=== PATIENT | male | born 1985 | race African-American/Black ===

== ENCOUNTER 2017-01-25 19:03 | Inpatient (IN) | payer BC, OTHER ==
[~2017-01-25] VITALS: Ht 188 cm; Wt 111.1 kg
--- NOTE | 2017-01-25 23:46 | NUR ---
INTAKE ADMISSION Pt is a 31 y/o male being admitted into [facility] for Opiate and Benzodiazepine withdrawal. At this time pt is a/o x 4 with no. Pt's vitals signs are as follow: 138/75 HR: 79 O2 SAT: 96% T: 98.6 R: 18 Pain: 4/10 COW: 10 and CIWA: 6 . Pt was made aware of policies and procedures including; routine vital sign assessments. Pt was given an opportunity to ask questions and voice concerns. Pt is now ready to proceed to the 3rd floor.
[2017-01-26] VITALS: BP 138/75
[2017-01-26 00:16] LABS: *AMPHETAMINE, URINE NEGATIVE (NEGATIVE); *BARBITURATE, URINE NEGATIVE (NEGATIVE); *CANNABINOID, URINE NEGATIVE (NEGATIVE); *COCCAINE, URINE NEGATIVE (NEGATIVE); *OPIATE, URINE POSITIVE (NEGATIVE); *PHENCYCLIDINE SCREEN,URINE NEGATIVE (NEGATIVE)
[2017-01-26] MEDS ORDERED: MAGNESIUM HYDROXIDE 30 ML LIQUID UDC PO PRN (00:45)
[2017-01-26] MEDS ORDERED: ACETAMINOPHEN 325 MG TABLET PO PRN (00:45)
[2017-01-26] MEDS ORDERED: IBUPROFEN 400 MG TABLET PO PRN (00:45)
[2017-01-26] MEDS ORDERED: MIRALAX 17 GM POWD.PACK PO PRN (00:45)
[2017-01-26] MEDS ORDERED: diphenhydrAMINE 50 MG CAPSULE PO PRN (00:45)
[2017-01-26] MEDS ORDERED: MAG HYDROX/AL HYDROX/SIMETH 30 ML LIQUID UDC PO PRN (00:45)
[2017-01-26] MEDS ORDERED: LORAZEPAM 2 MG/1 ML VIAL IM PRN (00:45)
[2017-01-26] MEDS ORDERED: LOPERAMIDE HCL 2 MG CAPSULE PO PRN ×2 (00:45)
[2017-01-26] MEDS ORDERED: METHOCARBAMOL 750 MG TABLET PO PRN (00:45)
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
[2017-01-26 01:16] LABS: BASOPHILS # (AUTO) 0.1 K/uL (0.0-8.0); BASOPHILS % (AUTO) 0.6 % (0.0-2.0); EOSINOPHILS # (AUTO) 0.3 K/uL (0.0-0.7); EOSINOPHILS % (AUTO) 2.5 % (0.0-7.0); HEMATOCRIT 43.7 % (40-50); HEMOGLOBIN 14.2 G/DL (14.0-18.0); LYMPHOCYTES # (AUTO) 4.8 K/UL (0.8-4.8); LYMPHOCYTES % (AUTO) 35.2 % (20.5-51.5); MEAN CORPUSCULAR HEMOGLOBIN 27.4 UUG (27.0-31.0); MEAN CORPUSCULAR HGB CONC 32 g/dL (32.0-37.0); MEAN CORPUSCULAR VOLUME 84.4 FL (82.0-92.0); MONOCYTES # (AUTO) 0.6 K/UL (0.1-1.30); MONOCYTES % (AUTO) 4.3 % (0.0-11.0); NEUTROPHILS # (AUTO) 7.8 K/UL (1.8-8.9); NEUTROPHILS % (AUTO) 57.4 % (38.5-71.5); PLATELET COUNT (AUTO) 278 K/UL (150-450); RED BLOOD CELL COUNT(AUTO) 5.18 MIL/UL (4.7-6.1); WHITE BLOOD COUNT (AUTO) 13.6 K/UL (4.0-11.2)
[2017-01-26 01:27] LABS: ETHANOL < 3 MG/DL (0-0)
[2017-01-26] MEDS: ONDANSETRON ODT 4 MG TAB.RAPDIS SL PRN ×2 (01:30→07:55)
[2017-01-26] MEDS: DICYCLOMINE HCL 20 MG TABLET PO PRN ×3 (01:30→15:34)
[2017-01-26 01:32] LABS: ALANINE AMINOTRANSFERASE 35 U/L (16-63); ALKALINE PHOSPHATASE 59 U/L (50-136); ASPARTATE AMINOTRANSFERASE 27 U/L (15-37); BILIRUBIN,TOTAL 0.2 mg/dL (0.2-1.0); CARBON DIOXIDE 30 mmol/L (21-32); CHLORIDE 104 mmol/L (98-107); CREATININE 0.9 mg/dL (0.6-1.3); GLUCOSE 105 mg/dL (74-106); MAGNESIUM 1.8 mg/dL (1.8-2.4); POTASSIUM 3.9 mmol/L (3.5-5.1); TOTAL PROTEIN, SERUM 7.6 g/dL (6.4-8.2); UREA NITROGEN, BLOOD 18 mg/dL (7-18)
[2017-01-26] MEDS: BUPRENORPHINE HCL 2 MG TAB.SUBL SL PRN ×2 (01:32→09:32)
--- NOTE | 2017-01-26 01:32 | NUR ---
SUBUTEX, BENTYL, AND ZOFRAN PRN ADMINISTRATION Pt stated " I'm really not feeling well. I'm sweating. My body is aching so bad and I'm nauseous. I just can't relax. Can I please have something?" COW score at this time is 12. Subutex 4 mg PO PRN, Zofran 4 mg ODT PRN, and Bentyl 20 mg PO PRN was given. All safety measures in place. Will monitor for effectiveness.
[2017-01-26] MEDS ORDERED: BUPRENORPHINE HCL 2 MG TAB.SUBL SL ONE (01:36)
[2017-01-26] MEDS ORDERED: ONDANSETRON ODT 4 MG TAB.RAPDIS ONE (01:37)
[2017-01-26] MEDS ORDERED: DICYCLOMINE HCL 20 MG TABLET ONE (01:37)
--- NOTE | 2017-01-26 02:32 | NUR ---
SUBUTEX, ZOFRAN, AND BENTYL PRN REASSESSMENT Pt stated " I feel way more relaxed now. I'm not nauseous anymore and I was able to keep my food down." COW is now 4. PRNS effective. All safety measures in place. Will continue to monitor.
[2017-01-26 04:00] VITALS: BP 111/53
[2017-01-26] MEDS ORDERED: DIAZ5TAB PO (06:52)
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
--- NOTE | 2017-01-26 07:15 | NUR ---
Start of Shift Endorsement received from nightshift nurse. PT is a 31 y/o male admitted for oxycodone and Valium. Pt has been placed on a 5 day Ativan and 5 day Subutex taper. Pt is mildly withdrawing at this time AEB COWS 3, CIWA 3 at 0400. Pt received PRN Zofran, Bentyl and Subutex. PT reports sleeping 5 hours. VS WNL. Full Code. PT is alert and oriented x4. Pt is in STABLE condition at this time. Remains compliant with medication and diet regimen. All needs have been met, All safety measures in place per hospital policy. Bed in lowest position, side rails up x2, call-light within reach. Will continue to monitor
[2017-01-26] MEDS: CLONIDINE HCL 0.1 MG TABLET PO PRN (07:55)
[2017-01-26] MEDS: HYDROXYZINE PAMOATE 25 MG CAPSULE PO PRN (07:55)
[2017-01-26 08:00] VITALS: BP 122/65
[2017-01-26] MEDS: MULTIVITAMINS,THERAPEUTIC TABLET PO SCH (09:17)
[2017-01-26] MEDS ORDERED: DIAZEPAM 10 MG TABLET PO PRN ×2 (11:30)
[2017-01-26] MEDS ORDERED: DIAZEPAM 5 MG TABLET PO PRN (11:30)
[2017-01-26] MEDS: DIAZEPAM 10 MG TABLET PO SCH ×3 (11:45→20:24)
[2017-01-26 12:00] VITALS: BP 130/69
[2017-01-26] MEDS: BUPRENORPHINE HCL 2 MG TAB.SUBL SL SCH ×3 (13:00→20:25)
[2017-01-26] MEDS: GABAPENTIN 300 MG CAPSULE PO SCH ×3 (15:00→20:24)
[2017-01-26 16:00] VITALS: BP 120/74
--- NOTE | 2017-01-26 18:59 | NUR ---
End of Shift Endorsement given to nightshift nurse. PT is a 31 y/o male admitted for oxycodone and Valium. Pt has been placed on a 5 day Valium and 5 day Subutex taper. Pt is moderately withdrawing at this time AEB COWS 4, CIWA 4 at 1900. Pt received PRN Zofran, Bentyl x2, Robaxin, Vistaril, Zofran and Subutex for COWS 12. All medications were effective upon re-assessment. Pt participated in groups and activities. Educated pt on diet and medication regimen. Educated pt on S/E of taper medications. Encouraged pt to drink lots of fluids. Intake: 1840m, Void x4, BM x1 Pt reports readiness for sobriety. PT presents with positive attitude. VS WNL. Full Code. PT is alert and oriented x4. Pt is in STABLE condition at this time. Remains compliant with medication and diet regimen. All needs have been met, All safety measures in place per hospital policy. Bed in lowest position, side rails up x2, call-light within reach. Will continue to monitor
[2017-01-26 20:00] VITALS: BP 126/83
--- NOTE | 2017-01-26 20:00 | NUR ---
Start of Shift Pt is a 31 year old male admitted for Opiate/Benzo dependence, placed on 5 day Valium and 5 day Subutex taper. PMH: Anxiety, depression, insomnia, back surgery 2016, and seizures (unspecified) 13 years ago. NKA, regular diet, fall/seizure precautions and full code. Upon assessment, pt reports anxiety, body aches, abdominal cramping, skin clammy, respirations even/unlabored, denies SOB/chest pain, denies n/v/d, denies SI/HI, bowel sounds active x4, abdomen soft. pt scheduled for discharge tomorrow. Safety measures in place, call light within reach, side rails up x2, bed locked and in low position. Will continue to monitor.
[2017-01-26] MEDS: QUETIAPINE FUMARATE 100 MG TABLET PO PRN (21:34)
--- NOTE | 2017-01-26 21:34 | NUR ---
PRN Administration 2133 Pt requested aid to help him sleep. Seroquel 100mg PRN administered as ordered. Safety measures in place, will continue to monitor.
--- NOTE | 2017-01-26 22:34 | NUR ---
PRN Reassessment Upon reassessment, pt is noted in bed with eyes closed, resting with respirations even/unlabored. Safety measures in place. Will continue to monitor.
[2017-01-27] VITALS: BP 131/84
--- NOTE | 2017-01-27 | NUR ---
Vital Signs BP 131/84, pulse 90, resp 18, SpO2 99%, temp 97.6, no pain 0/10 CIWA/COWS deferred to assess while pt is awake as ordered. Safety measures in place, will continue to monitor.
[2017-01-27 04:00] VITALS: BP 110/62
--- NOTE | 2017-01-27 04:00 | NUR ---
Vital Signs BP 110/62, pulse 69, resp 16, SpO2 98%, temp 98.1, no pain 0/10 CIWA/COWS deferred to assess while pt is awake as ordered. Safety measures in place, will continue to monitor.
[2017-01-27] MEDS: DICYCLOMINE HCL 20 MG TABLET PO PRN (05:46)
--- NOTE | 2017-01-27 05:46 | NUR ---
PRN Administration Pt reported abdominal cramping, requested relief. Bentyl 20mg PRN administered. Safety measures in place. Will continue to monitor.
--- NOTE | 2017-01-27 06:46 | NUR ---
PRN Reassessment Pt abdominal cramps are subsiding. Safety measures in place. Will continue to monitor.
--- NOTE | 2017-01-27 07:00 | NUR ---
End of Shift Pt is a 31 year old male admitted for Opiate/Benzo dependence, placed on 5 day Valium and 5 day Subutex taper. PMH: Anxiety, depression, insomnia, back surgery 2016, and seizures (unspecified) 13 years ago. NKA, regular diet, fall/seizure precautions and full code. During shift, pt reported anxiety, body aches, abdominal cramping, skin clammy - scheduled taper mediations administered, COWS 4 and CIWA 5. Seroquel 100mg PRN administered for sleep. Bentyl 20mg PRN administered for abdominal cramping. Pt slept for 5 hours, intake of 842 ML PO, voids x2 and stool x 0. Safety measures in place, call light within reach, side rails up x2, bed locked and in low position. Endorsed to day shift nurse.
--- NOTE | 2017-01-27 07:05 | NUR ---
Start of Shift Endorsement received from nightshift nurse. PT is a 31 y/o male admitted for oxycodone and Valium. Pt has been placed on a 5 day Ativan and 5 day Subutex taper. Pt is mildly withdrawing at this time AEB COWS 4, CIWA 4 at 0400. Pt received PRN Bentyl and Seroquel. PT reports sleeping 5 hours. PT reports feeling rested. VS WNL. Full Code. PT is alert and oriented x4. Pt is in STABLE condition at this time. Remains compliant with medication and diet regimen. All needs have been met, All safety measures in place per hospital policy. Bed in lowest position, side rails up x2, call-light within reach. Will continue to monitor
[2017-01-27 08:00] VITALS: BP 115/70
[2017-01-27] MEDS: DIAZEPAM 10 MG TABLET PO SCH ×3 (08:14→20:36)
[2017-01-27] MEDS: BUPRENORPHINE HCL 2 MG TAB.SUBL SL SCH ×3 (08:14→20:37)
[2017-01-27] MEDS: GABAPENTIN 300 MG CAPSULE PO SCH ×3 (08:14→20:35)
[2017-01-27] MEDS: MULTIVITAMINS,THERAPEUTIC TABLET PO SCH (08:14)
[2017-01-27] MEDS ORDERED: TUBERCULIN,PURIF.PROT.DERIV. 5 TU/0.1 ML TEST ID ONE (09:00)
[2017-01-27 12:00] VITALS: BP 127/74
[2017-01-27 13:09] LABS: HEPATITIS B SURFACE AG Negative (Negative)
--- NOTE | 2017-01-27 15:23 | NUR ---
Therapist advised client of group times. Client said he would go to group.
[2017-01-27 16:00] VITALS: BP 132/91
[2017-01-27] MEDS: CLONIDINE HCL 0.1 MG TABLET PO PRN (17:38)
--- NOTE | 2017-01-27 19:19 | NUR ---
End of Shift Endorsement given to nightshift nurse. PT is a 31 y/o male admitted for oxycodone and Valium. Pt has been placed on a 5 day Valium and 5 day Subutex taper. Pt is moderately withdrawing at this time AEB COWS 1, CIWA 1 at 1900. Pt received PRN Clonidine for minor anxiety and chills. All medications were effective upon re-assessment. Pt participated in groups and activities.PT is refusing all taper medications verbalizing that "he feels fine and wants to start the next step". Intake: 1984m, Void x2, BM x3 Pt reports readiness for sobriety. PT presents with positive attitude. VS WNL. Full Code. PT is alert and oriented x4. Pt is in STABLE condition at this time. Remains compliant with medication and diet regimen. All needs have been met, All safety measures in place per hospital policy. Bed in lowest position, side rails up x2, call-light within reach. Will continue to monitor
[2017-01-27 20:00] VITALS: BP 138/88
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
[2017-01-27] MEDS: QUETIAPINE FUMARATE 100 MG TABLET PO PRN (20:34)
--- NOTE | 2017-01-27 20:34 | NUR ---
SEROQUEL AND VISTARIL PRN ADMINISTRATION Pt requested Vistaril and Seroquel for sleep and anxiety. Seroquel 100 mg PO PRN and Vistaril 50 mg PO PRN was given. Will monitor for effectiveness.
[2017-01-27] MEDS: HYDROXYZINE PAMOATE 25 MG CAPSULE PO PRN (20:35)
--- NOTE | 2017-01-27 21:34 | NUR ---
SEROQUEL AND VISTARIL PRN REASSESSMENT PRN effective. Pt stated " I'm good now. I'm going to sleep."
--- NOTE | 2017-01-28 | NUR ---
COW, CIWA, AND VITALS DEFERRED Pt is asleep in bed with no signs of discomfort/distress noted. Assessment deferred until pt is awake. All safety measures in place. Will continue to monitor. Addendum: 01/28/17 at 0214 by TIFFANY DANG LVN Amended: Links added.
--- NOTE | 2017-01-28 04:00 | NUR ---
COW, CIWA, AND VITALS DEFERRED Pt is asleep at this time. COW and CIWA assessment deferred until client is awake. All safety measures in place. Will continue to monitor. Addendum: 01/28/17 at 0819 by TIFFANY DANG LVN Amended: Links added.
--- NOTE | 2017-01-28 07:20 | NUR ---
start of shift note SBAR report rcv'd. Pt was admitted for opiate and benzo dependence. Pt has a PMH of anxiety, depression, insomnia, and had a back surgery. Pt has NKA, is a full code and on a regular diet. Per report pt has been refusing his scheduled taper medications. Pt is currently ambulating around the unit, pt has no complaints at this time. Will continue to monitor pt. All needs addressed at this time.
[2017-01-28 08:00] VITALS: BP 140/88
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
[2017-01-28 08:29] LABS: BASOPHILS # (AUTO) 0.1 K/uL (0.0-8.0); BASOPHILS % (AUTO) 0.5 % (0.0-2.0); EOSINOPHILS # (AUTO) 0.5 K/uL (0.0-0.7); EOSINOPHILS % (AUTO) 4.2 % (0.0-7.0); HEMATOCRIT 45.4 % (40-50); HEMOGLOBIN 14.6 G/DL (14.0-18.0); LYMPHOCYTES # (AUTO) 3.9 K/UL (0.8-4.8); LYMPHOCYTES % (AUTO) 36.4 % (20.5-51.5); MEAN CORPUSCULAR HEMOGLOBIN 27.5 UUG (27.0-31.0); MEAN CORPUSCULAR HGB CONC 32 g/dL (32.0-37.0); MEAN CORPUSCULAR VOLUME 85.6 FL (82.0-92.0); MONOCYTES # (AUTO) 0.7 K/UL (0.1-1.30); MONOCYTES % (AUTO) 6.1 % (0.0-11.0); NEUTROPHILS # (AUTO) 5.6 K/UL (1.8-8.9); NEUTROPHILS % (AUTO) 52.8 % (38.5-71.5); PLATELET COUNT (AUTO) 256 K/UL (150-450); WHITE BLOOD COUNT (AUTO) 10.8 K/UL (4.0-11.2)
[2017-01-28] MEDS: DIAZEPAM 5 MG TABLET PO SCH ×2 (08:33→12:02)
--- NOTE | 2017-01-28 08:33 | NUR ---
Pt refusal of meds Pt refused to take subutex and valium. Will continue to monitor pt. All needs addressed at this time. Dr Zafar rojas.
[2017-01-28] MEDS: MULTIVITAMINS,THERAPEUTIC TABLET PO SCH (09:00)
[2017-01-28] MEDS: HYDROXYZINE PAMOATE 25 MG CAPSULE PO PRN ×2 (09:00→15:51)
[2017-01-28] MEDS: GABAPENTIN 300 MG CAPSULE PO SCH ×2 (09:00→15:47)
[2017-01-28] MEDS ORDERED: BUPRENORPHINE HCL 2 MG TAB.SUBL SL SCH ×2 (09:00→15:00)
--- NOTE | 2017-01-28 09:00 | NUR ---
PRN administration Pt c/o anxiety, administered PRN vistaril per MD order.
--- NOTE | 2017-01-28 10:00 | NUR ---
Reassessment Pt states that his level of anxiety has improved. Pt has no further complaints at this time. Will continue to monitor pt.
[2017-01-28 12:00] VITALS: BP_SYST 114; BP_SYST 131; BP_DIAS 66; BP_DIAS 93
--- NOTE | 2017-01-28 12:02 | NUR ---
Medication refusal Pt refused scheduled valium, Dr Stephen aware. NNO. Will continue to monitor pt.
[2017-01-28] MEDS ORDERED: DIAZEPAM 5 MG TABLET PO PRN (14:15)
[2017-01-28] MEDS ORDERED: DIAZEPAM 10 MG TABLET PO PRN ×2 (14:15)
--- NOTE | 2017-01-28 15:45 | NUR ---
PRN administration Pt c/o increased anxiety, administered PRN vistaril per MD order. Will continue to monitor pt.
--- NOTE | 2017-01-28 16:45 | NUR ---
Reassessment Pt states that his anxiety levels have decreased. Will continue to monitor pt. All needs addressed at this time.
[2017-01-28 16:52] LABS: *AMPHETAMINE, URINE NEGATIVE (NEGATIVE); *BARBITURATE, URINE NEGATIVE (NEGATIVE); *CANNABINOID, URINE NEGATIVE (NEGATIVE); *COCCAINE, URINE NEGATIVE (NEGATIVE); *OPIATE, URINE POSITIVE (NEGATIVE); *PHENCYCLIDINE SCREEN,URINE NEGATIVE (NEGATIVE)
--- NOTE | 2017-01-28 17:43 | NUR ---
Discharge note Pt was admitted for opiate and benzo dependence. Pt has a recent COWS and CIWA of 1 and 1. VS are WNL. Pt has no complaints at this time. Pt states that he feels ready for discharge. Pt verbalized his understanding of the discharge instructions. Pt denies SI/HI. All belongings, and discharge packet returned to pt. Pt ID band removed, pt ambulated off of unit with [facility], left facility via [facility] for [facility].
[2017-01-29] MEDS ORDERED: BUPRENORPHINE HCL 2 MG TAB.SUBL SL SCH (09:00)
[2017-01-29] MEDS ORDERED: DIAZEPAM 5 MG TABLET PO SCH (09:00)
[2017-01-30] MEDS ORDERED: BUPRENORPHINE HCL 2 MG TAB.SUBL SL SCH (09:00)
[2017-01-30] MEDS ORDERED: DIAZEPAM 5 MG TABLET PO SCH (09:00)
== END 2017-01-28 17:43 | disposition other institution (70) | DRG 895 ==
LOC: SRC 23:37
PROVIDERS: ADMIT Internal Medicine; ATTEND Internal Medicine
PROC: HZ2ZZZZ Detoxification Services for Substance Abuse Treatment (ICD-10-PCS; principal; 2017-01-25)
PROC: HZ41ZZZ Group Counseling for Substance Abuse Treatment, Behavioral (ICD-10-PCS; 2017-01-27)
PROC: HZ31ZZZ Individual Counseling for Substance Abuse Treatment, Behavioral (ICD-10-PCS; 2017-01-27)
DX: F11.23 Opioid dependence with withdrawal (principal); F13.230 Sedative, hypnotic or anxiolytic dependence with withdrawal, uncomplicated; Z98.1 Arthrodesis status; F41.9 Anxiety disorder, unspecified; D72.829 Elevated white blood cell count, unspecified; F17.210 Nicotine dependence, cigarettes, uncomplicated
CPT/HCPCS: 36415; 70030-TC; 71010; 80307; 80346; 80361; 83735; 85025; 86705; 87340; 87806; G0480; Q0162